=== PATIENT | male | born 1970 | race Hispanic/Latino ===

== ENCOUNTER 2017-05-04 14:20 | Emergency (ER) | payer OTHER ==
[2017-05-04 14:20] VITALS: BMI 33.2
[2017-05-04 14:29] VITALS: RESP 18
--- NOTE | 2017-05-04 15:12 | C.PDOC ---
History Of Present Illness 46 year old male, with PMHx of HTN, and diabetes, presents to ED requesting detox from alcohol. Pt states he drinks 1/2 liter of vodka everyday, last drink was 2 hours ago. Pt notes he was in rehab 3 weeks ago. Otherwise, denies tremors , withdrawal signs, abdominal pain, nausea, vomiting, or headache. Time Seen by Provider: 05/04/17 14:47 Chief Complaint (Nursing): Substance Abuse History Per: Patient History/Exam Limitations: no limitations Onset/Duration Of Symptoms: Gradual Current Symptoms Are (Timing): Still Present Modifying Factor(s): Alcohol Associated Symptoms: denies: Suicidal Thoughts, Suicidal Plan Involuntary Hold By: None Additional History Per: Patient Past Medical History Reviewed: Historical Data, Nursing Documentation, Vital Signs Vital Signs: Last Vital Signs Temp 99.2 F 05/04/17 14:25 Pulse 135 H 05/04/17 14:25 Resp 18 05/04/17 14:25 BP 181/102 H 05/04/17 14:25 Pulse Ox 97 05/04/17 15:32 - Medical History PMH: Anxiety, Diabetes, HTN Denies: Chronic Kidney Disease Family History: States: Unknown Family Hx - Social History Hx Alcohol Use: Yes Hx Substance Use: No - Immunization History Hx Tetanus Toxoid Vaccination: No Hx Influenza Vaccination: No Hx Pneumococcal Vaccination: No Review Of Systems Except As Marked, All Systems Reviewed And Found Negative. Constitutional: Negative for: Fever, Chills Cardiovascular: Negative for: Chest Pain, Palpitations Respiratory: Negative for: Cough, Shortness of Breath Gastrointestinal: Negative for: Nausea, Vomiting, Abdominal Pain Neurological: Negative for: Headache, Dizziness Psych: Negative for: Suicidal ideation, Withdrawal Physical Exam - Physical Exam Appears: Non-toxic, No Acute Distress Skin: Normal Color, Warm, Dry Head: Normacephalic Eye(s): bilateral: Normal Inspection Oral Mucosa: Moist Cardiovascular: Rhythm Regular (tachycardic) Respiratory: No Accessory Muscle Use, No Rales, No Rhonchi, No Wheezing Gastrointestinal/Abdominal: Soft, No Tenderness Extremity: Normal ROM Neurological/Psych: Oriented x3, Normal Speech ED Course And Treatment O2 Sat by Pulse Oximetry: 97 (RA) Pulse Ox Interpretation: Normal Progress Note: Pt was given Norvasc, Carvedilol, and Librium. Disposition Counseled Patient/Family Regarding: Diagnosis, Need For Followup - Disposition Referrals: Ken Fishman DO [Staff Provider] - Disposition: HOME/ ROUTINE Disposition Time: 03:40 Condition: STABLE Additional Instructions: FOLLOW UP WITH YOUR DOCTOR IN 1-2 DAYS RETURN TO ER IF YOUR SYMPTOMS WORSEN Instructions: Alcohol Dependence (ED), Against Medical Advice (ED) Forms: [employer] (Welsh), (AMA) Informed Refusal Print Language: ECUADOREAN - Clinical Impression Clinical Impression: Alcohol dependence, Left against medical advice - Scribe Statement The provider has reviewed the documentation as recorded by the Scribe Andrews Lerma All medical record entries made by the Scribe were at my direction and personally dictated by me. I have reviewed the chart and agree that the record accurately reflects my personal performance of the history, physical exam, medical decision making, and the department course for this patient. I have also personally directed, reviewed, and agree with the discharge instructions and disposition.
--- NOTE | 2017-05-04 15:21 | C.PDOC ---
Time Seen by Provider: 05/04/17 14:47 Chief Complaint (Nursing): Substance Abuse Past Medical History Vital Signs: Last Vital Signs Temp 99.2 F 05/04/17 14:25 Pulse 135 H 05/04/17 14:25 Resp 18 05/04/17 14:25 BP 181/102 H 05/04/17 14:25 Pulse Ox 97 05/04/17 14:25 - Medical History PMH: Anxiety, HTN Denies: Chronic Kidney Disease - Social History Hx Alcohol Use: Yes Hx Substance Use: No - Immunization History Hx Tetanus Toxoid Vaccination: No Hx Influenza Vaccination: No Hx Pneumococcal Vaccination: No ED Course And Treatment O2 Sat by Pulse Oximetry: 97 Disposition - Disposition
[2017-05-04 15:53] VITALS: BP 160/102; PULSE 122; TEMP 98.2; O2SAT 95
== END 2017-05-04 15:46 | disposition home or self-care (01) ==
LOC: C.ER 14:20
DX: F10.20 Alcohol dependence, uncomplicated (principal); E11.9 Type 2 diabetes mellitus without complications; I10 Essential (primary) hypertension